=== PATIENT | female | born 1950 | race Caucasian/White ===

== ENCOUNTER 2016-10-18 13:34 | Inpatient (IN) | payer MEDICAID, MEDICARE ==
[2016-10-18] MEDS ORDERED: methylPREDNISolone Sod Succ/PF 125 MG/2 ML VIAL ONE (13:54)
[2016-10-18 14:04] LABS: #Basophils 0.1 thou/uL (0.0-0.2); #Eosinphils 0.4 thou/uL (0.0-0.7); #Lymphocytes 1.1 thou/uL (1.20-3.40); #Monocytes 0.8 thou/uL (0.11-0.59); %Monocytes 8.7 % (0.0-10.0); Hematocrit 41.2 % (36.0-47.0); Mean Platelet Volume 6.9 fL (7.4-10.4); White Blood Cell (WBC) Count 9.4 thou/uL (4.8-10.8)
[2016-10-18 14:13] LABS: ALT (SGPT) 15 U/L (0-55); AST (SGOT) 18 U/L (5-34); Alkaline Phosphatase 106 U/L (40-150); Anion Gap 14 mmol/L (10-20); BUN (Urea Nitrogen) 8 mg/dL (9.8-20.1); Bilirubin, Total 0.6 mg/dL (0.2-1.2); Calc. Creatinine Clearance 0 mL/min (70-130); Calcium 9.7 mg/dL (7.8-10.44); Carbon Dioxide 34 mmol/L (23-31); Chloride 90 mmol/L (98-107); Estimated GFR-MDRD Greater than 90; Globulin 3.1 g/dL (2.4-3.5); Protein, Total 7.6 g/dL (5.8-8.1)
[2016-10-18 14:17] LABS: Troponin I Less than 0.010 ng/mL (< 0.028)
[2016-10-18 14:32] LABS: Base Excess 8.8 mEq/L (-2 - +2)
--- NOTE | 2016-10-18 15:40 | ERRECORD ---
[facility] EMERGENCY RECORD HPI COPD (14:08 [facility]) CHIEF COMPLAINT: Patient presents for evaluation of dyspnea, Patient presents for evaluation of wheezing. HISTORIAN: History provided by patient, 66F presents to the ED with complaints of 4 days of persistent shortness of breath. States that she was recently hospitalized for COPD exacerbation and this feels similar. Has oxygen at home, but has decreased exercise tolerance even on home oxygen. Denies chest pain, fevers, chills. LOCATION: No localizing symptoms. QUALITY: Symptoms described as wheezing. TIME COURSE: Gradual onset of symptoms, Symptoms are constant. ASSOCIATED WITH: No associated chest pain, No associated cough, No associated fever, Associated with history of chronic obstructive pulmonary disease. EXACERBATED BY: Patient's condition exacerbated by exercise. RELIEVED BY: Patient's condition relieved by inhaler use, Patient's condition relieved by oxygen. RISK FACTORS: No pulmonary embolism risk factors, No coronary artery disease risk factors, No thoracic aortic dissection risk factors. ROS (14:10 [facility]) CONSTITUTIONAL: Negative constitutional review of systems, Historian denies chills, denies fever. EYES: Negative eye review of systems, Historian denies eye pain, denies vision changes. ENT: Negative ears, nose, throat review of systems, Historian denies rhinorrhea, denies sore throat, denies voice changes. CARDIOVASCULAR: Negative cardiovascular review of systems, Historian denies chest pain, denies palpitations. RESPIRATORY: Historian reports shortness of breath, reports wheezing. GI: Negative gastrointestinal review of systems, Historian denies abdominal pain, denies constipation, denies diarrhea, denies nausea, denies vomiting. GENITOURINARY FEMALE: Negative genitourinary review of systems, Historian denies dysuria, denies frequency. MUSCULOSKELETAL: Negative musculoskeletal review of systems, Historian denies back pain, denies fall, denies injury. SKIN: Negative skin review of systems, Historian denies rash, denies skin changes. NEUROLOGIC: Negative neurologic review of systems, Historian denies headache, denies mental status changes, denies paralysis, denies paresthesias, denies sensory changes. HEMO/LYMPHATIC: Normal hematologic/lymphatic system review, Historian denies abnormal blood clotting. ALLERGIC/IMMUNOLOGIC: Normal allergy/immunologic system review, Historian denies frequent infections. PAST MEDICAL HISTORY (13:40 [facility]) &a-1R&a+25V*p+0X*[id number]*c202B*c15G*c2P*p-0X&a-25V&a+1R Name: Massiel Garay : 1950 F66 MedRec: [id number] AcctNum: [id number] Prepared: FriOct 18, 2016 15:34 by Interface Page 1 of 4 pMD [facility] EMERGENCY RECORD MEDICAL HISTORY: Flu vaccine up to date, Tetanus immunization up to date, Pneumococcal vaccine up to date, Flu vaccine up to date, Tetanus immunization up to date, Pneumococcal vaccine up to date, Past medical history includes gastrointestinal disease, gastroesophageal reflux disease, Past medical history includes history of hypertension, Past medical history includes pulmonary disease, chronic obstructive pulmonary disease, Notes: gastric ulcer , hyperlipidemia, VERIFIED 10/18/16. FEMALE SURGICAL HISTORY: Surgical history of section, Surgical history of tonsillectomy, Surgical history of hysterectomy, Surgical history of orthopedic surgery, BACK X2. ABDOMINAL EXPLORITORY SURGERY. REVIEWED 10/18/16. PSYCHIATRIC HISTORY: Psychiatric history includes, anxiety, bipolar disorder, depression.VERIFIED 10/18/16. SOCIAL HISTORY: Patient denies alcohol use, Patient is a former drug user, abused marijuana, Patient is a former tobacco user, quit smoking last smoking. VERIFIED 10/18/16. FAMILY HISTORY: Family history includes hypertension, father. Family history includes hypertension, father. No known family hisotry. KNOWN ALLERGIES morphine (Unconfirmed): Reaction: Nausea No Known Drug Allergies CURRENT MEDICATIONS (13:37 [facility]) Protonix: TABLET, DELAYED RELEASE (ENTERIC COATED) : Strength - 40 mg : ORAL Patient Dose: 40 mg Oral once a day. CeleXA: TABLET : Strength - 10 mg : ORAL Patient Dose: 40 mg Oral once a day. hydrOXYzine pamoate: CAPSULE : Strength - 25 mg : ORAL Patient Dose: 25 mg Oral every 6 hours PRN. fluticasone: SPRAY, SUSPENSION : Strength - 50 mcg : NASAL Patient Dose: 1 spray(s) Nares Both once a day. lisinopril: TABLET : Strength - 10 mg : ORAL Patient Dose: 10 mg Oral once a day. Ventolin HFA: HFA AEROSOL WITH ADAPTER (GRAM) : Strength - 90 mcg : INHALATION Patient Dose: 2 puff(s) Inhaler every 4 hours prn. Singulair: TABLET : Strength - 10 mg : ORAL Patient Dose: 1 tab(s) Oral once a day (in the morning). Symbicort: HFA AEROSOL WITH ADAPTER (GRAM) : Strength - 160 mcg-4.5 mcg/actuation : INHALATION &a-1R&a+25V*p+0X*[id number]*c202B*c15G*c2P*p-0X&a-25V&a+1R Name: Massiel Garay : 1950 F66 MedRec: [id number] AcctNum: [id number] Prepared: FriOct 18, 2016 15:34 by Interface Page 2 of 4 pMD [facility] EMERGENCY RECORD Patient Dose: 1 puff(s) Inhaler 2 times a day. VITAL SIGNS VITAL SIGNS: Pulse: 96, Resp: 22, Pain: 0, O2 sat: 86 on Room Air, Time: 10/18/2016 13:35. (13:35 [facility]) BP: 160/74, Temp: 97.8 (Oral), O2 sat: 100 on 2L Oxygen, Time: 10/18/2016 13:40. (13:40 [facility]) BP: 149/70, Pulse: 91, Resp: 22, Pain: 0, O2 sat: 99 on 2L Oxygen, Time: 10/18/2016 14:30. (14:30 [facility]) PHYSICAL EXAM (14:10 [facility]) CONSTITUTIONAL: Patient afebrile, Pulse normal, Blood pressure normal, Respiratory rate normal, Abnormal Pulse Oximetry, hypoxic on room air, 100% on 2L home o2, Patient appears non toxic, Patient appears pain free, Patient alert and oriented to person, place and time. HEAD: Head exam normal, Head exam included findings of head atraumatic, normocephalic. EYES: Eye exam normal, Eye exam included findings of eyelids normal to inspection, Pupils equally round and reactive to light, Extraocular muscles intact, no nystagmus. ENT: ENT exam normal, Ear exam normal, external ear normal, tympanic membranes normal, no bleeding, Pharynx exam normal, Uvula exam normal, Tonsil exam normal, Mouth exam normal, mucous membranes moist, teeth normal. NECK: Neck exam normal, Neck exam included findings of normal range of motion, Trachea midline, no meningeal signs, no cervical adenopathy, no tenderness. RESPIRATORY CHEST: Respiratory exam included findings of, mild respiratory distress, Wheezing present, diffusely, Breath sounds diminished. CARDIOVASCULAR: Cardiovascular assessment normal, Cardiovascular exam included findings of heart rate regular rate and rhythm, Heart sounds normal. ABDOMEN FEMALE: Abdominal exam included findings of abdomen nontender, Bowel sounds normal, no distension, no mass, no pulsatile masses, no peritoneal signs, no rigidity, no guarding, no rebound, Rovsing's sign absent. BACK: Back exam normal, Back exam included findings of normal inspection, range of motion normal, no tenderness. UPPER EXTREMITY: Upper extremity exam normal, Upper extremity exam included findings of inspection normal, Range of motion normal, Motor strength normal, Sensation intact, Radial pulse normal. LOWER EXTREMITY: Lower extremity exam normal, Lower extremity exam included findings of inspection normal, Range of motion normal, Motor strength normal, Sensation intact, Posterior tibial pulse normal, Pedal pulse normal. NEURO: Neuro exam normal, Neuro exam findings include patient oriented to person, place and time, Speech normal, Gait normal, &a-1R&a+25V*p+0X*d3834M*c202B*c15G*c2P*p-0X&a-25V&a+1R Name: Massiel Garay : 1950 F66 MedRec: [id number] AcctNum: [id number] Prepared: FriOct 18, 2016 15:34 by Interface Page 3 of 4 pMD [facility] EMERGENCY RECORD Cranial nerves intact, no focal motor deficits, no focal sensory deficits. SKIN: Skin exam normal, Skin exam included findings of skin warm, dry, and normal in color, no rash. PSYCHIATRIC: Psychiatric exam normal, Normal affect. EKG INTERPRETATION (15:27 [facility]) 12 LEAD EKG INTERPRETATION: Interpretation: normal EKG. RADIOLOGYINTERPRETATION (14:12 [facility]) CHEST: Chest films negative. MEDICATION ADMINISTRATION SUMMARY Drug Name: methylPREDNISolone sodium succ injection, Dose Ordered: 125 mg, Route: IV Push, Status: Given, Time: 14:02 10/18/2016, Drug Name: DuoNeb, Dose Ordered: 3 mL, Route: Nebulize, Status: Given, Time: 13:58 10/18/2016, Detailed record available in Medication Service section. [facility] RE-EVALUATION: Routine re-evaluation, after administration of bronchodilator nebulizer treatments, The patient's condition has improved. TEXT: Patient presented with findings consistent with COPD exacerbation. Workup has been reassuring except for PCO2 of 65. Patient ambulated with O2 on and desaturated to 91%, and became tachycardic. I believe patient would benefit from admission for observation overnight and continued care and management due to her advance disease and current condition. PATIENT PLAN: The patient will be admitted to the hospital, Initial physician orders were written for patient as discussed with admitting physician, The patient will be admitted to a medical floor. DATA REVIEWED: Lab data reviewed, Xray data reviewed, Reviewed EKG. PROBLEM LIST No recorded problems PRESCRIPTION No recorded prescriptions [place]: MATTEO=TACO Elkins, Magalys [facility]=MD Bea, Codey &a-1R&a+25V*p+0X*d7713Y*c202B*c15G*c2P*p-0X&a-25V&a+1R Name: Massiel Garay : 1950 F66 MedRec: [id number] AcctNum: [id number] Prepared: FriOct 18, 2016 15:34 by Interface Page 4 of 4 pMD MTDD
--- NOTE | 2016-10-18 15:40 | ERRECORD ---
[facility] EMERGENCY RECORD HPI COPD (14:08 [facility]) CHIEF COMPLAINT: Patient presents for evaluation of dyspnea, Patient presents for evaluation of wheezing. HISTORIAN: History provided by patient, 66F presents to the ED with complaints of 4 days of persistent shortness of breath. States that she was recently hospitalized for COPD exacerbation and this feels similar. Has oxygen at home, but has decreased exercise tolerance even on home oxygen. Denies chest pain, fevers, chills. LOCATION: No localizing symptoms. QUALITY: Symptoms described as wheezing. TIME COURSE: Gradual onset of symptoms, Symptoms are constant. ASSOCIATED WITH: No associated chest pain, No associated cough, No associated fever, Associated with history of chronic obstructive pulmonary disease. EXACERBATED BY: Patient's condition exacerbated by exercise. RELIEVED BY: Patient's condition relieved by inhaler use, Patient's condition relieved by oxygen. RISK FACTORS: No pulmonary embolism risk factors, No coronary artery disease risk factors, No thoracic aortic dissection risk factors. ROS (14:10 [facility]) CONSTITUTIONAL: Negative constitutional review of systems, Historian denies chills, denies fever. EYES: Negative eye review of systems, Historian denies eye pain, denies vision changes. ENT: Negative ears, nose, throat review of systems, Historian denies rhinorrhea, denies sore throat, denies voice changes. CARDIOVASCULAR: Negative cardiovascular review of systems, Historian denies chest pain, denies palpitations. RESPIRATORY: Historian reports shortness of breath, reports wheezing. GI: Negative gastrointestinal review of systems, Historian denies abdominal pain, denies constipation, denies diarrhea, denies nausea, denies vomiting. GENITOURINARY FEMALE: Negative genitourinary review of systems, Historian denies dysuria, denies frequency. MUSCULOSKELETAL: Negative musculoskeletal review of systems, Historian denies back pain, denies fall, denies injury. SKIN: Negative skin review of systems, Historian denies rash, denies skin changes. NEUROLOGIC: Negative neurologic review of systems, Historian denies headache, denies mental status changes, denies paralysis, denies paresthesias, denies sensory changes. HEMO/LYMPHATIC: Normal hematologic/lymphatic system review, Historian denies abnormal blood clotting. ALLERGIC/IMMUNOLOGIC: Normal allergy/immunologic system review, Historian denies frequent infections. PAST MEDICAL HISTORY (13:40 [facility]) &a-1R&a+25V*p+0X*a5829U*c202B*c15G*c2P*p-0X&a-25V&a+1R Name: Massiel Garay : 1950 F66 MedRec: [id number] AcctNum: [id number] Prepared: FriOct 18, 2016 16:19 by Interface Page 1 of 5 pMD [facility] EMERGENCY RECORD MEDICAL HISTORY: Flu vaccine up to date, Tetanus immunization up to date, Pneumococcal vaccine up to date, Flu vaccine up to date, Tetanus immunization up to date, Pneumococcal vaccine up to date, Past medical history includes gastrointestinal disease, gastroesophageal reflux disease, Past medical history includes history of hypertension, Past medical history includes pulmonary disease, chronic obstructive pulmonary disease, Notes: gastric ulcer , hyperlipidemia, VERIFIED 10/18/16. FEMALE SURGICAL HISTORY: Surgical history of section, Surgical history of tonsillectomy, Surgical history of hysterectomy, Surgical history of orthopedic surgery, BACK X2. ABDOMINAL EXPLORITORY SURGERY. REVIEWED 10/18/16. PSYCHIATRIC HISTORY: Psychiatric history includes, anxiety, bipolar disorder, depression.VERIFIED 10/18/16. SOCIAL HISTORY: Patient denies alcohol use, Patient is a former drug user, abused marijuana, Patient is a former tobacco user, quit smoking last smoking. VERIFIED 10/18/16. FAMILY HISTORY: Family history includes hypertension, father. Family history includes hypertension, father. No known family hisotry. KNOWN ALLERGIES morphine (Unconfirmed): Reaction: Nausea No Known Drug Allergies CURRENT MEDICATIONS (13:37 [facility]) Protonix: TABLET, DELAYED RELEASE (ENTERIC COATED) : Strength - 40 mg : ORAL Patient Dose: 40 mg Oral once a day. CeleXA: TABLET : Strength - 10 mg : ORAL Patient Dose: 40 mg Oral once a day. hydrOXYzine pamoate: CAPSULE : Strength - 25 mg : ORAL Patient Dose: 25 mg Oral every 6 hours PRN. fluticasone: SPRAY, SUSPENSION : Strength - 50 mcg : NASAL Patient Dose: 1 spray(s) Nares Both once a day. lisinopril: TABLET : Strength - 10 mg : ORAL Patient Dose: 10 mg Oral once a day. Ventolin HFA: HFA AEROSOL WITH ADAPTER (GRAM) : Strength - 90 mcg : INHALATION Patient Dose: 2 puff(s) Inhaler every 4 hours prn. Singulair: TABLET : Strength - 10 mg : ORAL Patient Dose: 1 tab(s) Oral once a day (in the morning). Symbicort: HFA AEROSOL WITH ADAPTER (GRAM) : Strength - 160 mcg-4.5 mcg/actuation : INHALATION &a-1R&a+25V*p+0X*[id number]*c202B*c15G*c2P*p-0X&a-25V&a+1R Name: Massiel Garay : 1950 F66 MedRec: [id number] AcctNum: [id number] Prepared: FriOct 18, 2016 16:19 by Interface Page 2 of 5 pMD [facility] EMERGENCY RECORD Patient Dose: 1 puff(s) Inhaler 2 times a day. VITAL SIGNS VITAL SIGNS: Pulse: 96, Resp: 22, Pain: 0, O2 sat: 86 on Room Air, Time: 10/18/2016 13:35. (13:35 [facility]) BP: 160/74, Temp: 97.8 (Oral), O2 sat: 100 on 2L Oxygen, Time: 10/18/2016 13:40. (13:40 [facility]) BP: 149/70, Pulse: 91, Resp: 22, Pain: 0, O2 sat: 99 on 2L Oxygen, Time: 10/18/2016 14:30. (14:30 [facility]) BP: 136/73, Pulse: 91, Resp: 22, Temp: 98.1 (Oral), Pain: 0, O2 sat: 99 on 2L Oxygen, Time: 10/18/2016 15:38. (15:38 [facility]) PHYSICAL EXAM (14:10 [facility]) CONSTITUTIONAL: Patient afebrile, Pulse normal, Blood pressure normal, Respiratory rate normal, Abnormal Pulse Oximetry, hypoxic on room air, 100% on 2L home o2, Patient appears non toxic, Patient appears pain free, Patient alert and oriented to person, place and time. HEAD: Head exam normal, Head exam included findings of head atraumatic, normocephalic. EYES: Eye exam normal, Eye exam included findings of eyelids normal to inspection, Pupils equally round and reactive to light, Extraocular muscles intact, no nystagmus. ENT: ENT exam normal, Ear exam normal, external ear normal, tympanic membranes normal, no bleeding, Pharynx exam normal, Uvula exam normal, Tonsil exam normal, Mouth exam normal, mucous membranes moist, teeth normal. NECK: Neck exam normal, Neck exam included findings of normal range of motion, Trachea midline, no meningeal signs, no cervical adenopathy, no tenderness. RESPIRATORY CHEST: Respiratory exam included findings of, mild respiratory distress, Wheezing present, diffusely, Breath sounds diminished. CARDIOVASCULAR: Cardiovascular assessment normal, Cardiovascular exam included findings of heart rate regular rate and rhythm, Heart sounds normal. ABDOMEN FEMALE: Abdominal exam included findings of abdomen nontender, Bowel sounds normal, no distension, no mass, no pulsatile masses, no peritoneal signs, no rigidity, no guarding, no rebound, Rovsing's sign absent. BACK: Back exam normal, Back exam included findings of normal inspection, range of motion normal, no tenderness. UPPER EXTREMITY: Upper extremity exam normal, Upper extremity exam included findings of inspection normal, Range of motion normal, Motor strength normal, Sensation intact, Radial pulse normal. LOWER EXTREMITY: Lower extremity exam normal, Lower extremity exam included findings of inspection normal, Range of motion normal, Motor strength normal, Sensation intact, Posterior tibial pulse normal, Pedal pulse normal. &a-1R&a+25V*p+0X*k3693X*c202B*c15G*c2P*p-0X&a-25V&a+1R Name: Massiel Garay : 1950 F66 MedRec: [id number] AcctNum: [id number] Prepared: FriOct 18, 2016 16:19 by Interface Page 3 of 5 D [facility] EMERGENCY RECORD NEURO: Neuro exam normal, Neuro exam findings include patient oriented to person, place and time, Speech normal, Gait normal, Cranial nerves intact, no focal motor deficits, no focal sensory deficits. SKIN: Skin exam normal, Skin exam included findings of skin warm, dry, and normal in color, no rash. PSYCHIATRIC: Psychiatric exam normal, Normal affect. EKG INTERPRETATION (15:27 [facility]) 12 LEAD EKG INTERPRETATION: Interpretation: normal EKG. RADIOLOGYINTERPRETATION (14:12 [facility]) CHEST: Chest films negative. MEDICATION ADMINISTRATION SUMMARY Drug Name: methylPREDNISolone sodium succ injection, Dose Ordered: 125 mg, Route: IV Push, Status: Given, Time: 14:02 10/18/2016, Drug Name: DuoNeb, Dose Ordered: 3 mL, Route: Nebulize, Status: Given, Time: 13:58 10/18/2016, Detailed record available in Medication Service section. DOCTOR NOTES (15:28 [facility]) RE-EVALUATION: Routine re-evaluation, after administration of bronchodilator nebulizer treatments, The patient's condition has improved. TEXT: Patient presented with findings consistent with COPD exacerbation. Workup has been reassuring except for PCO2 of 65. Patient ambulated with O2 on and desaturated to 91%, and became tachycardic. I believe patient would benefit from admission for observation overnight and continued care and management due to her advance disease and current condition. PATIENT PLAN: The patient will be admitted to the hospital, Initial physician orders were written for patient as discussed with admitting physician, The patient will be admitted to a medical floor. DATA REVIEWED: Lab data reviewed, Xray data reviewed, Reviewed EKG. PROBLEM LIST No recorded problems DIAGNOSIS (16:11 [facility]) FINAL: PRIMARY: COPD exacerbation. PRESCRIPTION No recorded prescriptions DISPOSITION PATIENT: Disposition Type: Admit, Disposition: [facility]. (16:11 [facility]) &a-1R&a+25V*p+0X*f1909O*c202B*c15G*c2P*p-0X&a-25V&a+1R Name: Massiel Garay : 1950 F66 MedRec: [id number] AcctNum: [id number] Prepared: FriOct 18, 2016 16:19 by Interface Page 4 of 5 pMD [facility] EMERGENCY RECORD Patient left the department. (16:11 [facility]) [place]: AHOO=JAIME Kumar, December [facility]=TACO Elkins, Magalys [facility]=MD Bea, Codey &a-1R&a+25V*p+0X*p0576L*c202B*c15G*c2P*p-0X&a-25V&a+1R Name: Massiel Garay : 1950 F66 MedRec: [id number] AcctNum: [id number] Prepared: FriOct 18, 2016 16:19 by Interface Page 5 of 5 pMD MTDD
--- NOTE | 2016-10-18 15:44 | PICIS ---
[facility] EMERGENCY RECORD TRIAGE (FriOct 18, 2016 13:37 BGAR) TRIAGE NOTES: pt c/o sob x 4 days; sent over by pcp. (FriOct 18, 2016 13:37 BGAR) PATIENT: NAME: Massiel Garay, AGE: 66, GENDER: female, : Fri1950, TIME OF GREET: FriOct 18, 2016 13:35, PREFERRED LANGUAGE: Slovenian, ETHNICITY: Not or , ECODE BILLING MAP: [facility], SSN: [id number], Zip Code: [address], KG WEIGHT: 44.45 (est.), PHONE: , , , PERSON ID: [id number], PAYMENT: [employer], PCP: kadi moralez. (FriOct 18, 2016 13:37 BGAR) COMPLAINT: Shortness of Breath. (FriOct 18, 2016 13:37 BGAR) ADMISSION: URGENCY: 3 Urgent, ADMISSION SOURCE: Doctor's Office, TRANSPORT: Walk-in, BED: ER -02. (FriOct 18, 2016 13:37 BGAR) ASSESSMENT: Assessment: PT TO ER BED 2. PT WITH SOB, HX OF COPB, Symptoms began 4 DAYS AGO. (13:40 BGAR) PAIN: No complaint of pain. (13:40 BGAR) SIRS SCORING: Heart Rate 55-109 (0), Temp range 96.8-101.1 (0), respiratory rate 12-24 (0), Mental Status altered: no (0), Infection or Suspected Infection: No. (13:40 BGAR) SIRS NOTIFICATION: Yes, Infection or Suspected Infection. (13:40 BGAR) TRIAGE SCREENING: Patient denies suicidal ideation, Patient denies presence of domestic violence. (13:40 BGAR) LMP: LMP: Hysterectomy. (13:40 BGAR) PROVIDERS: TRIAGE NURSE: Magalys Elkins RN. (FriOct 18, 2016 13:37 BGAR) VITAL SIGNS: Pulse 96, Resp 22, Pain 0, O2 Sat 86, on Room Air, Time 10/18/2016 13:35. (13:35 BGAR) PREVIOUS VISIT ALLERGIES: No Known Drug Allergies. (FriOct 18, 2016 13:37 BGAR) No Known Drug Allergies. (13:40 BGAR) KNOWN ALLERGIES morphine (Unconfirmed): Reaction: Nausea No Known Drug Allergies CURRENT MEDICATIONS (13:37 BGAR) Protonix: TABLET, DELAYED RELEASE (ENTERIC COATED) : Strength - 40 mg : ORAL Patient Dose: 40 mg Oral once a day. CeleXA: TABLET : Strength - 10 mg : ORAL Patient Dose: 40 mg Oral once a day. hydrOXYzine pamoate: CAPSULE : Strength - 25 mg : ORAL Patient Dose: 25 mg Oral every 6 hours PRN. fluticasone: SPRAY, SUSPENSION : Strength - 50 mcg : NASAL Patient Dose: 1 spray(s) Nares Both once a day. &a-1R&a+25V*p+0X*m4586C*c202B*c15G*c2P*p-0X&a-25V&a+1R Name: Massiel Garay : 1950 F66 MedRec: [id number] AcctNum: [id number] Prepared: FriOct 18, 2016 16:19 by Interface Page 1 of 10 pMD [facility] EMERGENCY RECORD lisinopril: TABLET : Strength - 10 mg : ORAL Patient Dose: 10 mg Oral once a day. Ventolin HFA: HFA AEROSOL WITH ADAPTER (GRAM) : Strength - 90 mcg : INHALATION Patient Dose: 2 puff(s) Inhaler every 4 hours prn. Singulair: TABLET : Strength - 10 mg : ORAL Patient Dose: 1 tab(s) Oral once a day (in the morning). Symbicort: HFA AEROSOL WITH ADAPTER (GRAM) : Strength - 160 mcg-4.5 mcg/actuation : INHALATION Patient Dose: 1 puff(s) Inhaler 2 times a day. VITAL SIGNS VITAL SIGNS: Pulse: 96, Resp: 22, Pain: 0, O2 sat: 86 on Room Air, Time: 10/18/2016 13:35. (13:35 BGAR) BP: 160/74, Temp: 97.8 (Oral), O2 sat: 100 on 2L Oxygen, Time: 10/18/2016 13:40. (13:40 BGAR) BP: 149/70, Pulse: 91, Resp: 22, Pain: 0, O2 sat: 99 on 2L Oxygen, Time: 10/18/2016 14:30. (14:30 BGAR) BP: 136/73, Pulse: 91, Resp: 22, Temp: 98.1 (Oral), Pain: 0, O2 sat: 99 on 2L Oxygen, Time: 10/18/2016 15:38. (15:38 AHOO) NURSING ASSESSMENT: FALL RISK (15:52 AHOO) FALL RISK: Fall risk assessment findings include: History of falls (5), Sensory deficits (1), Total score 6. HENDRICH II FALL RISK: Total score 0. NURSING ASSESSMENT: RESPIRATORY /CHEST (13:40 BGAR) CONSTITUTIONAL: Patient arrives, via hospital wheelchair, Unsteady gait, Assistance to cart, History obtained from patient, Patient appears, uncomfortable, Patient cooperative, Patient alert, Oriented to person, place and time, Skin warm, Skin dry, Skin normal in color, Mucous membranes pink, Mucous membranes moist. RESPIRATORY/CHEST: Lungs auscultated, Breath sounds diminished, to bilateral upper lobes, to bilateral lower lobes, Breath sounds with wheezing, scattered, to bilateral upper lobes, Respiratory assessment findings include respiratory effort, tachypneic, Respirations regular, Converses, in short phrases, Neck and chest exam findings include trachea midline, Chest expansion equal, Chest movement symmetrical, Signs of distress, in mild distress, Associated with cough, productive of, brown sputum, Associated with fever. ENT: Ear assessment findings include ear normal to inspection, no drainage from ears, Nasal assessment findings include nose normal to &a-1R&a+25V*p+0X*y8229V*c202B*c15G*c2P*p-0X&a-25V&a+1R Name: Massiel Garay : 1950 F66 MedRec: [id number] AcctNum: [id number] Prepared: FriOct 18, 2016 16:19 by Interface Page 2 of 10 pMD [facility] EMERGENCY RECORD inspection, Sinuses normal, Nasal mucosa normal, no bleeding, Mouth and throat assessment findings include mouth inspection normal, Uvula normal, Tonsils normal, Mucous membranes pink, and moist, Able to swallow, Patient, able to speak short phrases. SAFETY: Side rails up, Cart/Stretcher in lowest position, Call light within reach, Hospital ID band on. NURSING ASSESSMENT: SKIN (15:55 AHOO) CONSTITUTIONAL: Complex assessment performed, Patient arrives ambulatory, Gait steady, History obtained from patient, Patient appears comfortable, Patient cooperative, Patient alert, Oriented to person, place and time, Skin warm, Skin dry, Skin normal in color, Mucous membranes pink, Mucous membranes moist, Patient is well-groomed, Patient complains of SOB. PAIN: PT DENIES PAIN. JOSTIN SCALE: (4) Sensory perception has no impairment, (4) Skin is rarely moist, (4) Patient walks frequently, (4) No mobility limitations, (3) Adequate nutrition, (3) Patient has no apparent problem moving, Jostin Risk Total: 22. NURSING PROCEDURE: ADMISSION ADMISSION: Patient admitted to a medical-surgical unit, room number 114, Notes: CALLED REPORT TO LANCE RN. (15:58 AHOO) NOTES: Notes: WHEELED PT TO ROOM 114 VIA WHEELCHAIR AND TURNED OVER PT CARE TO LANCE RN. (16:05 AHOO) NURSING PROCEDURE: BEDSIDE RADIOLOGY (13:56 BGAR) PATIENT IDENTIFIER: Patient actively involved in identification process, Patient's identity verified by patient stating name, Patient's identity verified by patient stating date, Patient's identity verified by hospital ID bracelet. BEDSIDE RADIOLOGY: Bedside radiology performed by Yamile Singh, Portable chest x-ray performed. NURSING PROCEDURE: BEDSIDE SIRS TESTING (15:51 AHOO) SCORES: Heart Rate 55-109 (0), Temp range 96.8-101.1 (0), respiratory rate 12-24 (0), Latest WBC 3-14.9 (0), Mental Status altered: no (0), Infection or Suspected Infection: No. NURSING PROCEDURE: COMMUNICATIONS (14:36 AHOO) COMMUNICATIONS: Critical lab value, received at [facility], received from [facility], Critical lab result: 65, given to DR MATOS, results read back and verified, Notes: PVCO2 IS 65. NURSING PROCEDURE: EKG CHART (13:51 AHOO) PATIENT IDENTIFIER: Patient actively involved in identification process, Patient's identity verified by patient stating name, Patient's identity verified by patient stating date, Patient's identity verified by hospital ID bracelet. EKG: EKG indicated for SOB, 12 lead EKG performed on the left &a-1R&a+25V*p+0X*l6442F*c202B*c15G*c2P*p-0X&a-25V&a+1R Name: Massiel Garay : 1950 F66 MedRec: [id number] AcctNum: [id number] Prepared: FriOct 18, 2016 16:19 by Interface Page 3 of 10 pMD [facility] EMERGENCY RECORD chest, done by FABIEN OVALLE LVN, first EKG. FOLLOW-UP: After procedure, EKG for interpretation given to Dr. DR MATOS. NURSING PROCEDURE: IV PATIENT IDENITIFIER: Patient actively involved in identification process, Patient's identity verified by patient stating name, Patient's identity verified by patient stating date, Patient's identity verified by hospital ID bracelet. (13:40 AHOO) IV SITE 1: IV therapy indicated for medication administration, IV established, to the right antecubital, using a 20 gauge catheter, in one attempt, Saline lock established, Flushed with normal saline (mls): 10ML, Labs drawn at time of placement, labeled in the presence of the patient and sent to lab. (13:40 AHOO) FOLLOW-UP SITE 1: After procedure, sterile transparent dressing applied, After procedure, no drainage at IV site, After procedure, no swelling at IV site, After procedure, no redness at IV site, Notes: SL PATENT WITHOUT ANY REDNESS, EDEMA OR BRUISING NOTED. (16:08 AHOO) NURSING PROCEDURE: NURSE NOTES (14:45 AHOO) NURSES NOTES: Notes: WALKED THE PT DOWN THE [address] WAY WITH O2 AT 2L PER NC AND PULSE OXIMETER ON HER FINGER, PT AT APPROX 25 FEET STATED "I CAN'T BREATH" HER OXYGENTATION WAS AT 93% AT THIS TIME AND HER HR WAS 123. WE TURNED AROUND TO COME BACK TO THE ER AT APPROX 50 PT OXYGENATION WENT DOWN TO 91% ON 2L NC AND HER HR WAS 137. WHEN I BROUGHT PT BACK TO HER ER ROOM IT TOOK APPROX 2-3MIN FOR HER TO RECOVER WITH HER OXYGENATION GOING UP TO 98% AND HR DOWN TO 115. NURSING PROCEDURE: RESPIRATORY INTERVENTIONS PATIENT IDENTIFIER: Patient actively involved in identification process, Patient's identity verified by patient stating name, Patient's identity verified by patient stating date, Patient's identity verified by hospital ID bracelet. (13:58 BGAR) RESPIRATORY INTERVENTIONS: Respiratory interventions indicated for wheezing, Pre-intervention breath sounds diminished, to bilateral upper lobes, to bilateral lower lobes, Pre-intervention breath sounds with wheezing, scattered, to bilateral upper lobes, Patient given ALBUTEROL with ATROVENT, Single dose nebulizer. (13:58 BGAR) FOLLOW-UP: After procedure, oxygen saturation 99%, After procedure, breath sounds diminished, to bilateral upper lobes, to bilateral lower lobes, After procedure, breath sounds with wheezing, scattered, to bilateral upper lobes. (14:08 BGAR) SAFETY: Side rails up, Cart/Stretcher in lowest position, Call light within reach, Hospital ID band on. (13:58 BGAR) ORDER DETAILS &a-1R&a+25V*p+0X*m9598W*c202B*c15G*c2P*p-0X&a-25V&a+1R Name: Massiel Garay : 1950 F66 MedRec: [id number] AcctNum: [id number] Prepared: FriOct 18, 2016 16:19 by Interface Page 4 of 10 pMD [facility] EMERGENCY RECORD Order Name: Basic Metabolic Panel, Status: Active, Time: 13:47 10/18/2016, User: BRITTNEY, - Ordered for: MD Matos Jason, - Entered by: MD Matos Jason - FriOct 18, 2016 13:47, - Quantity: 1, Order Name: Cardiac Profile w/CKMB & Troponin - I, Status: Active, Time: 13:47 10/18/2016, User: BRITTNEY, - Ordered for: MD Matos Jason, - Entered by: MD Matos Jason - FriOct 18, 2016 13:47, - Quantity: 1, Order Name: CBC with Differential, Status: Active, Time: 13:47 10/18/2016, User: BRITTNEY, - Ordered for: MD Matos Jason, - Entered by: MD Matos Jason - FriOct 18, 2016 13:47, - Quantity: 1, Order Name: Comprehensive Metabolic Panel, Status: Active, Time: 13:47 10/18/2016, User: BRITTNEY, - Ordered for: MD Matos Jason, - Entered by: MD Matos Jason - Caitlin Oct 18, 2016 13:47, - Quantity: 1, Order Name: Culture, Blood, Status: Active, Time: 15:10 10/18/2016, User: BRITTNEY, - Ordered for: MD Matos Jason, - Entered by: MD Matos Jason - FriOct 18, 2016 15:10, - Quantity: 1, Order Name: EKG 12 Lead in Emergency Room, Status: Active, Time: 13:47 10/18/2016, User: BRITTNEY, - Ordered for: MD Matos Jason, - Entered by: MD Matos Jason - Fri Oct 18, 2016 13:47, - Quantity: 1, Order Name: SALINE LOCK, Status: Done, Time: 13:52 10/18/2016, User: MATTEO, - Ordered for: MD Matos Jason, - Entered by: MD Matos Jason - Fri Oct 18, 2016 13:47, - Quantity: 1, Order Name: VBG (For BUR,MAD, and LOREN), Status: Active, Time: 14:19 10/18/2016, User: BRITTNEY, - Ordered for: MD Matos Jason, - Entered by: MD Matos Jason - Caitlin Oct 18, 2016 14:19, - Quantity: 1, Order Name: XR Chest 1 View Portable, Status: Active, Time: 13:47 10/18/2016, User: BRITTNEY, - Ordered for: MD Matos Jason, - Entered by: MD Matos Jason - Fri Oct 18, 2016 13:47, - Quantity: 1. MEDICATION ADMINISTRATION SUMMARY Drug Name: methylPREDNISolone sodium succ injection, Dose Ordered: 125 mg, Route: IV Push, Status: Given, Time: 14:02 10/18/2016, &a-1R&a+25V*p+0X*e0102Q*c202B*c15G*c2P*p-0X&a-25V&a+1R Name: Massiel Garay : 1950 F66 MedRec: [id number] AcctNum: [id number] Prepared: FriOct 18, 2016 16:19 by Interface Page 5 of 10 pMD [facility] EMERGENCY RECORD Drug Name: DuoNeb, Dose Ordered: 3 mL, Route: Nebulize, Status: Given, Time: 13:58 10/18/2016, Detailed record available in Medication Service section. MEDICATION SERVICE DuoNeb: Order: DuoNeb (ipratropium bromide/albuterol sulfate) - Dose: 3 mL : Nebulize Ordered by: Codey Matos MD Entered by: Codey Matos MD FriOct 18, 2016 13:49 , Acknowledged by: Magalys Elkins RN FriOct 18, 2016 13:54 Documented as given by: Magalys Elkins RN FriOct 18, 2016 13:58 Patient, Medication, Dose, Route and Time verified prior to administration. Site: Medication administered via Hand-held nebulizer, With oxygen. : Follow Up : Response assessment performed, No signs or symptoms of allergic reaction noted, Decreased respiratory rate, Decreased respiratory effort. (16:00 AHOO) methylPREDNISolone sodium succ injection: Order: methylPREDNISolone sodium succ injection (methylprednisolone sod succ) - Dose: 125 mg : IV Push Ordered by: Codey Matos MD Entered by: Codey Matos MD FriOct 18, 2016 13:48 , Acknowledged by: Magalys Elkins RN FriOct 18, 2016 13:54 Documented as given by: Magalys Elkins RN FriOct 18, 2016 14:02 Patient, Medication, Dose, Route and Time verified prior to administration. IV SITE #1 IVP, initial medication, Slowly, Catheter placement confirmed via flush prior to administration, IV site without signs or symptoms of infiltration during medication administration, No swelling during administration, No drainage during administration, IV flushed after administration, Correct patient, time, route, dose and medication confirmed prior to administration, Patient advised of actions and side-effects prior to administration, Allergies confirmed and medications reviewed prior to administration. : Follow Up : Response assessment performed, No signs or symptoms of allergic reaction noted, Decreased respiratory rate, Decreased respiratory effort, _IV SITE #1:_. (16:00 AHOO) HPI COPD (14:08 [facility]) CHIEF COMPLAINT: Patient presents for evaluation of dyspnea, Patient presents for evaluation of wheezing. HISTORIAN: History provided by patient, 66F presents to the ED with complaints of 4 days of persistent shortness of breath. States that she was recently hospitalized for COPD exacerbation and this feels similar. Has oxygen at home, but has decreased exercise tolerance even on home oxygen. Denies chest pain, fevers, chills. LOCATION: No localizing symptoms. QUALITY: Symptoms described as wheezing. TIME COURSE: Gradual onset of symptoms, &a-1R&a+25V*p+0X*i3703I*c202B*c15G*c2P*p-0X&a-25V&a+1R Name: Massiel Garay : 1950 F66 MedRec: [id number] AcctNum: [id number] Prepared: FriOct 18, 2016 16:19 by Interface Page 6 of 10 pMD [facility] EMERGENCY RECORD Symptoms are constant. ASSOCIATED WITH: No associated chest pain, No associated cough, No associated fever, Associated with history of chronic obstructive pulmonary disease. EXACERBATED BY: Patient's condition exacerbated by exercise. RELIEVED BY: Patient's condition relieved by inhaler use, Patient's condition relieved by oxygen. RISK FACTORS: No pulmonary embolism risk factors, No coronary artery disease risk factors, No thoracic aortic dissection risk factors. ROS (14:10 [facility]) CONSTITUTIONAL: Negative constitutional review of systems, Historian denies chills, denies fever. EYES: Negative eye review of systems, Historian denies eye pain, denies vision changes. ENT: Negative ears, nose, throat review of systems, Historian denies rhinorrhea, denies sore throat, denies voice changes. CARDIOVASCULAR: Negative cardiovascular review of systems, Historian denies chest pain, denies palpitations. RESPIRATORY: Historian reports shortness of breath, reports wheezing. GI: Negative gastrointestinal review of systems, Historian denies abdominal pain, denies constipation, denies diarrhea, denies nausea, denies vomiting. GENITOURINARY FEMALE: Negative genitourinary review of systems, Historian denies dysuria, denies frequency. MUSCULOSKELETAL: Negative musculoskeletal review of systems, Historian denies back pain, denies fall, denies injury. SKIN: Negative skin review of systems, Historian denies rash, denies skin changes. NEUROLOGIC: Negative neurologic review of systems, Historian denies headache, denies mental status changes, denies paralysis, denies paresthesias, denies sensory changes. HEMO/LYMPHATIC: Normal hematologic/lymphatic system review, Historian denies abnormal blood clotting. ALLERGIC/IMMUNOLOGIC: Normal allergy/immunologic system review, Historian denies frequent infections. PAST MEDICAL HISTORY (13:40 BGAR) MEDICAL HISTORY: Flu vaccine up to date, Tetanus immunization up to date, Pneumococcal vaccine up to date, Flu vaccine up to date, Tetanus immunization up to date, Pneumococcal vaccine up to date, Past medical history includes gastrointestinal disease, gastroesophageal reflux disease, Past medical history includes history of hypertension, Past medical history includes pulmonary disease, chronic obstructive pulmonary disease, Notes: gastric ulcer , hyperlipidemia, VERIFIED 10/18/16. FEMALE SURGICAL HISTORY: Surgical history of section, Surgical history of tonsillectomy, Surgical history of hysterectomy, Surgical history of orthopedic surgery, BACK X2. &a-1R&a+25V*p+0X*m9261G*c202B*c15G*c2P*p-0X&a-25V&a+1R Name: Massiel Garay : 1950 F66 MedRec: [id number] AcctNum: [id number] Prepared: FriOct 18, 2016 16:19 by Interface Page 7 of 10 pMD [facility] EMERGENCY RECORD ABDOMINAL EXPLORITORY SURGERY. REVIEWED 10/18/16. PSYCHIATRIC HISTORY: Psychiatric history includes, anxiety, bipolar disorder, depression.VERIFIED 10/18/16. SOCIAL HISTORY: Patient denies alcohol use, Patient is a former drug user, abused marijuana, Patient is a former tobacco user, quit smoking last smoking. VERIFIED 10/18/16. FAMILY HISTORY: Family history includes hypertension, father. Family history includes hypertension, father. No known family hisotry. PHYSICAL EXAM (14:10 [facility]) CONSTITUTIONAL: Patient afebrile, Pulse normal, Blood pressure normal, Respiratory rate normal, Abnormal Pulse Oximetry, hypoxic on room air, 100% on 2L home o2, Patient appears non toxic, Patient appears pain free, Patient alert and oriented to person, place and time. HEAD: Head exam normal, Head exam included findings of head atraumatic, normocephalic. EYES: Eye exam normal, Eye exam included findings of eyelids normal to inspection, Pupils equally round and reactive to light, Extraocular muscles intact, no nystagmus. ENT: ENT exam normal, Ear exam normal, external ear normal, tympanic membranes normal, no bleeding, Pharynx exam normal, Uvula exam normal, Tonsil exam normal, Mouth exam normal, mucous membranes moist, teeth normal. NECK: Neck exam normal, Neck exam included findings of normal range of motion, Trachea midline, no meningeal signs, no cervical adenopathy, no tenderness. RESPIRATORY CHEST: Respiratory exam included findings of, mild respiratory distress, Wheezing present, diffusely, Breath sounds diminished. CARDIOVASCULAR: Cardiovascular assessment normal, Cardiovascular exam included findings of heart rate regular rate and rhythm, Heart sounds normal. ABDOMEN FEMALE: Abdominal exam included findings of abdomen nontender, Bowel sounds normal, no distension, no mass, no pulsatile masses, no peritoneal signs, no rigidity, no guarding, no rebound, Rovsing's sign absent. BACK: Back exam normal, Back exam included findings of normal inspection, range of motion normal, no tenderness. UPPER EXTREMITY: Upper extremity exam normal, Upper extremity exam included findings of inspection normal, Range of motion normal, Motor strength normal, Sensation intact, Radial pulse normal. LOWER EXTREMITY: Lower extremity exam normal, Lower extremity exam included findings of inspection normal, Range of motion normal, Motor strength normal, Sensation intact, Posterior tibial pulse normal, Pedal pulse normal. NEURO: Neuro exam normal, Neuro exam findings include patient oriented to person, place and time, Speech normal, Gait normal, &a-1R&a+25V*p+0X*n5109W*c202B*c15G*c2P*p-0X&a-25V&a+1R Name: Massiel Garay : 1950 F66 MedRec: [id number] AcctNum: [id number] Prepared: FriOct 18, 2016 16:19 by Interface Page 8 of 10 pMD [facility] EMERGENCY RECORD Cranial nerves intact, no focal motor deficits, no focal sensory deficits. SKIN: Skin exam normal, Skin exam included findings of skin warm, dry, and normal in color, no rash. PSYCHIATRIC: Psychiatric exam normal, Normal affect. LAB INTERPRETATION (15:27 [facility]) INTERPRETATION: I reviewed the lab results, CBC normal, Chemistry normal, Cardiac enzymes normal. EVENTS TRANSFER: Triage to Emergency Emergency Room -02. (FriOct 18, 2016 13:37 BGAR) Removed from Emergency Emergency Room -02. (16:11 [facility]) RADIOLOGYINTERPRETATION (14:12 [facility]) CHEST: Chest films negative. EKG INTERPRETATION (15:27 [facility]) 12 LEAD EKG INTERPRETATION: Interpretation: normal EKG. DOCTOR NOTES (15:28 [facility]) RE-EVALUATION: Routine re-evaluation, after administration of bronchodilator nebulizer treatments, The patient's condition has improved. TEXT: Patient presented with findings consistent with COPD exacerbation. Workup has been reassuring except for PCO2 of 65. Patient ambulated with O2 on and desaturated to 91%, and became tachycardic. I believe patient would benefit from admission for observation overnight and continued care and management due to her advance disease and current condition. PATIENT PLAN: The patient will be admitted to the hospital, Initial physician orders were written for patient as discussed with admitting physician, The patient will be admitted to a medical floor. DATA REVIEWED: Lab data reviewed, Xray data reviewed, Reviewed EKG. PROBLEM LIST No recorded problems DIAGNOSIS (16:11 [facility]) FINAL: PRIMARY: COPD exacerbation. DISPOSITION PATIENT: Disposition Type: Admit, Disposition: [facility]. (16:11 [facility]) Patient left the department. (16:11 [facility]) PRESCRIPTION No recorded prescriptions &a-1R&a+25V*p+0X*v0760U*c202B*c15G*c2P*p-0X&a-25V&a+1R Name: Massiel Garay : 1950 F66 MedRec: [id number] AcctNum: [id number] Prepared: FriOct 18, 2016 16:19 by Interface Page 9 of 10 pMD [facility] EMERGENCY RECORD IMAGING *EKG: Image captured from scanner. (15:02 [facility]) ADMISSION ORDERS: Image captured from scanner. (15:10 [facility]) *SUPPLY CHARGE SHEET: Image captured from scanner. (16:10 [facility]) ADMIN DIGITAL SIGNATURE: MD Matos Jason. (15:29 [facility]) MD Matos Jason. (16:11 [facility]) [place]: AHOO=JAIME Ovalle, December BGAR=TACO Elkins, Magalys JJAC=MD Matos Jason &a-1R&a+25V*p+0X*d9104W*c202B*c15G*c2P*p-0X&a-25V&a+1R Name: Massiel Garay : 1950 F66 MedRec: [id number] AcctNum: [id number] Prepared: FriOct 18, 2016 16:19 by Interface Page 10 of 10 pMD [facility]TDD
[2016-10-18 16:30] VITALS: BMI 17.9
[2016-10-18] MEDS ORDERED: Diazepam 5 MG TAB PO PRN (18:14)
[2016-10-18] MEDS: Mometasone/Formoterol 60 PUFF AER INH SCH (20:19)
[2016-10-18] MEDS: Fluticasone Propionate Nasal Spray 16 gm Bottle NASAL SCH (20:24)
[2016-10-18] MEDS: Zolpidem Tartrate 5 MG TAB PO SCH (20:25)
--- NOTE | 2016-10-18 20:33 | RAD ---
PORTABLE CHEST 10/18/16 Comparison is made with the 03/2016 study. The heart is normal in size. The lungs are hyperexpanded as expected with her COPD. They are clear. No infiltrate or effusion was seen. There is no vascular congestion or edema. The trachea is midline . IMPRESSION: COPD with no acute finding. POS: HOME
[2016-10-18] MEDS ORDERED: Sodium Chloride 0.9% 10 ML ONE (21:01)
[2016-10-19 06:17] LABS: #Lymphocytes 0.5 thou/uL (1.20-3.40); #Monocytes 0.4 thou/uL (0.11-0.59); %Eosinophils 0.1 % (0.0-10.0); %Monocytes 10.7 % (0.0-10.0); Hematocrit 35.9 % (36.0-47.0); Mean Platelet Volume 7.1 fL (7.4-10.4); Red Blood Cell (RBC) Count 3.86 mill/uL (4.20-5.40)
[2016-10-19 06:40] LABS: Anion Gap 12 mmol/L (10-20); BUN (Urea Nitrogen) 7 mg/dL (9.8-20.1); Calc. Creatinine Clearance 73 mL/min (70-130); Calcium 9.7 mg/dL (7.8-10.44); Carbon Dioxide 29 mmol/L (23-31); Chloride 94 mmol/L (98-107); Estimated GFR-MDRD Greater than 90
[2016-10-19] MEDS: Mometasone/Formoterol 60 PUFF AER INH SCH ×2 (08:34→18:45)
[2016-10-19] MEDS: Montelukast Sodium 10 mg Tablet PO SCH (09:09)
[2016-10-19] MEDS: Lisinopril 10 MG TAB PO SCH (09:12)
[2016-10-19] MEDS: Fluticasone Propionate Nasal Spray 16 gm Bottle NASAL SCH ×2 (09:12→21:30)
[2016-10-19] MEDS: Enoxaparin Sodium 40 MG/0.4 ML SYRINGE SC SCH (17:40)
--- NOTE | 2016-10-19 17:45 | HP ---
DATE OF ADMISSION: 10/18/2016 PRIMARY CARE PHYSICIAN: Dr. Yoly Colin, Nurse Practitioner, [facility]. SR. DIRECTOR PRODUCT MANAGEMENT: Dr. Hope in [place]. CHIEF COMPLAINT: Shortness of breath and wheezing. HISTORY OF PRESENT ILLNESS: Ms. Garay is a 66-year-old female with history of hypertension , gastroesophageal reflux disease, and chronic COPD with 2 to 3 exacerbations per year requiring hos pitalization for increasing dyspnea and cough. She was recently admitted for a week in [place] for acute exacerbation of her COPD. She had quit smoking for about a year, but had uses 6-8 cigarettes prior to her admission in July. Yesterday, she presented to her PCP, Dr. Yoly Colin com plaining of worsening shortness of breath with wheezing for the past 4 days. She has been using her oxygen along with her albuterol nebulization q.4-6 hours, but with no improvement, she has been arabella y tired and cannot do her usual activities. She also has had low grade fever all throughout and a d eep cough. At the clinic, her O2 saturation ranged from 80%-90%. She was then sent to ED for furth er evaluation. She was dyspneic and with diffuse wheezing when she first came in. Her vital signs showed blood pressure of 160/74, pulse rate of 96, O2 sat was 80% at room air, respiratory rate was 22, temperature was 97.8. She was given O2 at 25% FIO2 which subsequently improved her saturation t o 100%. She was given Solu-Medrol per IV, and DuoNeb x1. Her workup included normal chest x-ray, w bonny count was within normal range. Her cardiac markers were normal. Her venous blood gas showed a pCO2 of 65, her oxygen dropped to 92% while on 2 liters while walking with shortness of breath and became tachycardic, hence this admission for COPD exacerbation with hypoxemia. She was started on e mpiric treatment with Levaquin, DuoNeb q.i.d. scheduled and p.r.n. and Solu-Medrol per IV. She was also placed on continuous oxygen. This morning, she verbalized with little improvement with her sunita athing, still has a dry cough, and little appetite. PAST MEDICAL HISTORY: 1. Chronic obstructive pulmonary disease with intermittent use of oxygen. 2. Hypertension. 3. Gastroesophageal reflux disease. 4. Chronic hyponatremia. 5. Bipolar disorder. PAST SURGICAL HISTORY: 1. . 2. Tonsillectomy. 3. Hysterectomy. 4. Back surgery x2. 5. Exploratory laparotomy. HOME MEDICATIONS: 1. Ambien 5 mg at bedtime. 2. Diazepam 2 mg daily p.r.n. for anxiety. 3. Albuterol HFA 1 puff q.6 hours p.r.n. 4. DuoNeb q.i.d. p.r.n. 5. Cymbalta 30 mg b.i.d. 6. Tudorza Pressair 400 mcg inhalational b.i.d. 7. Symbicort 2 puffs inhalation b.i.d. 8. Protonix 40 mg daily. 9. Singular 10 mg daily. 10. Lisinopril 10 mg daily. 11. Flonase 2 sprays b.i.d. FAMILY HISTORY: Both parents due to chronic obstructive pulmonary disease with complications. PERSONAL AND SOCIAL HISTORY: She lives with her son and his family. She is a social drinker, admit s to long history of cigarette smoking, recently smoked cigarettes back in July. REVIEW OF SYSTEMS: General: Positive for low grade fever, positive for fatigue. Positive for decr eased appetite. EYES: Positive for decreased vision. EAR, NOSE, THROAT: Negative for sore throat . Negative for ear pain. Respiratory: Positive for cough. Positive for shortness of breath. Pos itive for wheezing. Cardiovascular: Negative for chest pain. Negative for palpitation. Gastroint estinal: Negative for abdominal pain, no nausea, vomiting or diarrhea. Musculoskeletal: Negative for joint pains, joint stiffness or joint swelling. Integument: Negative for skin lesions, no pru ritus. Psychiatric: Positive for anxiety. Positive for mild depression. Hematology: Negative fo r swollen nodes. Negative for bruising. Negative for bleeding. PHYSICAL EXAMINATION: VITAL SIGNS: Blood pressure of 107/52, respiratory rate of 20, temperature of 98 Fahrenheit, pulse of 94, O2 saturation 98% at 3 liters. GENERAL: Patient is alert, oriented, slightly tachypneic, speaks in short sentences. HEENT: Normocephalic, atraumatic. Pupils equally reactive to light. No tonsillar pharyngeal conge stion. NECK: Supple, negative for thyromegaly, no lymphadenopathy. CHEST: Positive use of accessory muscle with supraclavicular retractions. LUNGS: Decreased breath sounds all throughout with faint expiratory wheezing. HEART: Slightly tachycardic, no murmur, rubs or gallops. ABDOMEN: Flat, soft, nontender, normoactive bowel sounds. EXTREMITIES: Symmetrical spontaneous movement. No edema. No clubbing. NEUROLOGIC: No focal deficits. PSYCHIATRIC: Appropriate affect and demeanor. LABORATORY DATA: WBC of 4, hemoglobin of 11.6, hematocrit of 35.9, neutrophils of 75, lymphocytes o f 12.9, monocytes of 10. BMP: Sodium of 131, potassium of 4.3, chloride of 94, creatinine of 0.54, GFR of 90, glucose of 122, calcium of 9.7. ASSESSMENT: 1. Acute on chronic exacerbation of COPD with hypoxemia. 2. Essential hypertension. 3. Gastroesophageal reflux disease. 4. Chronic hyponatremia. 5. Anemia. 6. Bipolar disorder. 7. Former smoker. 8. Weakness. PLAN: 1. We will change from observation status to inpatient. She is not stable to go home and not clini kurt improved, she is still dyspneic and has tight breath sounds. She will continue with oxygen to maintain saturation between 92%-94%. She would require IV Solu-Medrol, scheduled breathing treatme nts and p.r.n. for dyspnea and wheezing. 2. We will continue with present empiric treatment with IV Levaquin pending blood cultures. 3. Continue GI prophylaxis with Protonix due to IV steroid use. 4. Reconciled home medication. 5. DVT prophylaxis with Lovenox with SCDs.
[2016-10-19] MEDS: Diazepam 5 MG TAB PO PRN (23:17)
[2016-10-19] MEDS: Zolpidem Tartrate 5 MG TAB PO SCH (23:17)
[2016-10-20] MEDS: Mometasone/Formoterol 60 PUFF AER INH SCH ×2 (06:07→18:48)
[2016-10-20] MEDS: Fluticasone Propionate Nasal Spray 16 gm Bottle NASAL SCH ×2 (08:42→22:20)
[2016-10-20] MEDS: Lisinopril 10 MG TAB PO SCH (09:20)
[2016-10-20] MEDS: Montelukast Sodium 10 mg Tablet PO SCH (09:20)
--- NOTE | 2016-10-20 16:01 | PRG ---
DATE OF SERVICE: 10/20/2016 PRIMARY CARE PHYSICIAN: Yoly Colin, Nurse Practitioner, [facility]. DISHWASHER PREPARER: Dr. Prince in [place]. ATTENDING PHYSICIAN: Dr. Johnson. SUBJECTIVE: Still having shortness of breath, but feels better compared yesterday, she walked down the hallways without dropping her O2 saturation. She denies any fever. She denies chest pain. Her cough is better. She likes Dulera than her Symbicort. She feels she can go home soon. OBJECTIVE: VITAL SIGNS: Blood pressure of 107/52, pulse of 100, temperature of 97.7, O2 sat 100% at room air, respiratory rate of 18. GENERAL: Patient is alert, oriented, in mild respiratory distress. HEENT: Normocephalic, atraumatic. Pupils equally reactive to light. No tonsillopharyngeal congestion. NECK: Supple. Negative for thyromegaly. Negative for lymphadenopathy. CHEST AND LUNGS: Positive use of accessory muscles. Negative for retractions. Distant breath sounds with expiratory wheezes. HEART: Tachycardic, no murmur, rubs or gallops. ABDOMEN: Flat, soft, nontender. EXTREMITIES: Symmetrical. No edema. No clubbing. NEUROLOGIC: No focal deficits. PSYCHIATRIC: Appropriate affect and demeanor. LABORATORY: Blood culture x2 negative. ASSESSMENT: 1. Acute on chronic exacerbation of chronic obstructive pulmonary disease with hypoxemia, improving. 2. Essential hypertension, stable. 3. Gastroesophageal reflux disease. 4. Chronic hyponatremia, symptomatic. 5. Bipolar disorder. 6. Former smoker. 7. Weakness. PLAN: 1. She has improved since admission, still requiring O2 support, we will continue IV Levaquin, decrease her breathing treatments from scheduled to p.r.n. for dyspnea and wheezing. 2. Taper IV steroids. 3. Continue GI prophylaxis with Protonix due to her IV steroid use. 4. Continue deep vein thrombosis prophylaxis with SCDs. 5. We will start discharge planning, hopefully home tomorrow and close follow up with her PCP, Yoly Colin, nurse practitioner at [facility]. [facility]
[2016-10-20] MEDS: Enoxaparin Sodium 40 MG/0.4 ML SYRINGE SC SCH (18:34)
[2016-10-20] MEDS: Milk Of Magnesia 30 ML UDCUP PO PRN (18:47)
[2016-10-20] MEDS: predniSONE 20 MG TAB PO SCH (22:20)
[2016-10-20] MEDS: Zolpidem Tartrate 5 MG TAB PO SCH (22:20)
[2016-10-20] MEDS: Diazepam 5 MG TAB PO PRN (22:23)
[2016-10-20] MEDS: Doxycycline Hyclate 100 MG TAB PO SCH (22:23)
[2016-10-21] MEDS: Mometasone/Formoterol 60 PUFF AER INH SCH ×2 (06:09→18:39)
[2016-10-21] MEDS: Fluticasone Propionate Nasal Spray 16 gm Bottle NASAL SCH ×2 (09:22→21:47)
[2016-10-21] MEDS: Milk Of Magnesia 30 ML UDCUP PO PRN (09:22)
[2016-10-21] MEDS: guaiFENesin ER 600 MG TAB PO SCH ×2 (09:22→21:44)
[2016-10-21] MEDS: Doxycycline Hyclate 100 MG TAB PO SCH ×2 (09:23→21:45)
[2016-10-21] MEDS: Montelukast Sodium 10 mg Tablet PO SCH (09:23)
[2016-10-21] MEDS: Lisinopril 10 MG TAB PO SCH (09:24)
[2016-10-21] MEDS: predniSONE 20 MG TAB PO SCH ×2 (09:24→21:47)
[2016-10-21] MEDS: Enoxaparin Sodium 40 MG/0.4 ML SYRINGE SC SCH (18:39)
[2016-10-21] MEDS: Diazepam 5 MG TAB PO PRN (21:47)
[2016-10-21] MEDS: Zolpidem Tartrate 5 MG TAB PO SCH (21:47)
[2016-10-22] MEDS: Mometasone/Formoterol 60 PUFF AER INH SCH (06:05)
[2016-10-22] MEDS: Fluticasone Propionate Nasal Spray 16 gm Bottle NASAL SCH (09:13)
[2016-10-22] MEDS: guaiFENesin ER 600 MG TAB PO SCH (09:14)
[2016-10-22] MEDS: predniSONE 20 MG TAB PO SCH (09:14)
[2016-10-22] MEDS: Montelukast Sodium 10 mg Tablet PO SCH (09:14)
[2016-10-22] MEDS: Doxycycline Hyclate 100 MG TAB PO SCH (09:15)
[2016-10-22] MEDS: Lisinopril 10 MG TAB PO SCH (09:15)
[2016-10-22] MEDS: Enoxaparin Sodium 40 MG/0.4 ML SYRINGE SC SCH (17:54)
[2016-10-22 18:23] VITALS: BP 118/56; TEMP 98.6
[2016-10-22] MEDS ORDERED: Budesonide 0.5 MG/2 ML NEB INH SCH (19:00)
[2016-10-22] MEDS ORDERED: Arformoterol 15 MCG/2 ML NEB NEB SCH (19:00)
--- NOTE | 2016-10-23 04:46 | DIS ---
DATE OF ADMISSION: 10/18/2016 DATE OF TRANSFER: 10/22/2016 ADMISSION DIAGNOSES: 1. [id number] respiratory failure with hypoxia and hypercapnia. 2. Acute exacerbation of chronic obstructive pulmonary disease. 3. Anxiety and depression. 4. Gastroesophageal reflux disease. 5. Hypertension. 6. Chronic hyponatremia. 7. Tobacco abuse. DISCHARGE DIAGNOSES: 1. Balbj-iy-yfohsge respiratory failure with hypoxia and hypercapnia. 2. Acute exacerbation of chronic obstructive pulmonary disease. 3. Anxiety and depression. 4. Gastroesophageal reflux disease. 5. Hypertension. 6. Chronic hyponatremia. 7. Tobacco abuse. PRIMARY CARE PHYSICIAN: Yoly Colin PA-C ADMITTING PHYSICIAN: Kaylah Johnson MD COVERING PHYSICIAN: Fara Michael DO, for her primary care provider, Yoly Colin PA-C from 10/21/2016, through the date of transfer. PROCEDURES: 1. CBC from the date of admission with white count 9.4, hemoglobin 13.0, hematocrit 41.2, platelets 343 with 75% neutrophils, 11.5% lymphocytes. 2. Venous blood gas from the date of admission with a pH of 7.37. 3. PCO2 of 65. 4. PO2 of 32. 5. HCO3 of 36. 6. Sodium on the date of admission 134, chloride 90, bicarbonate 34, BUN 8, creatinine 0.56, normal LFTs, normal cardiac enzymes. Repeat chemistry profile on 10/19/2016, with sodium 131, chloride 94, bicarbonate 29, BUN 7, creatinine 0.54, glucose 122, calcium 9.7. 7. Blood culture x2 with no growth at 48 hours. 8. Chest x-ray from the date of admission showed COPD with no acute findings. HISTORY AND PHYSICAL EXAMINATION: Please see dictated report from Dr. Johnson on the day of admission. HOSPITAL COURSE: Ms. Garay is a 66-year-old female, tobacco dependent , who presented to the emergency room from her clinic setting for worsening shortness of breath, cough, and wheezing. The patient went to her primary care provider that day, Ms. Colin, who recommended that the patient undergo further evaluation for probable admission due to suspected COPD exacerbation. In the emergency room, the patient was noted to be hypoxic and tachypneic. The hypoxia corrected with O2. She was administered IV antibiotics and steroids, which were continued up through 10/20/2016, at which point the patient's IV infiltrated. She had quick improvement of her symptoms with decreased dyspnea, wheezing, and increased stamina. She was transitioned from Symbicort in the outpatient setting to Dulera, which was on formulary here and felt that this was more effective for her. However, on the day prior to her discharge, she was still continuing to feel somewhat dyspneic with diminished air entry throughout and a prolonged expiratory phase and I transitioned her over to Brovana via neb b.i.d. and Pulmicort b.i.d. This will likely be continued in the outpatient setting if she does well on this during her swing bed stay. She was also given DuoNeb every 6 hours. Her IV antibiotics were transitioned to doxycycline 100 mg p.o. b.i.d. Her Solu-Medrol was changed to prednisone 40 mg b.i.d. and this will be tapered over a 2-week period. Due to dyspnea on exertion and continued hypoxia with ambulation, the patient was qualified for outpatient portable oxygen prior to her discharge. We will order a nebulizer machine for the patient at home. We would like to have physical therapy evaluate the patient for strengthening and increasing her stamina and pulmonary toilet while she is in our swing bed stay for a few more days until at which point hopefully she will be stable to go home. At that point, we will order outpatient pulmonary function testing and enroll the patient in pulmonary rehabilitation. She is motivated for therapy. Tobacco cessation/avoidance counseled during visit. DISPOSITION: Transfer to swing bed unit. CONDITION: Stable. MEDICATIONS: 1. Brovana 15 mcg nebulized b.i.d. 2. Budesonide 0.5 mg inhaled b.i.d. 3. Duloxetine 30 mg p.o. b.i.d. 4. Valium 2.5 mg p.o. every 24 hours p.r.n. 5. Doxycycline 100 mg p.o. b.i.d. 6. Fluticasone 2 sprays per nostril b.i.d. 7. DuoNeb 3 mL on nebulized every 6 hours. 8. Zestril 10 mg p.o. daily. 9. Magnesium hydroxide 30 mL p.o. daily p.r.n. 10. Singulair 10 mg p.o. daily. 11. Pantoprazole 40 mg p.o. daily. 12. Ambien 5 mg p.o. at bedtime. 13. Guaifenesin 1200 mg p.o. every 12 hours, extended release. 14. Prednisone 40 mg p.o. b.i.d. to be tapered over 2-week period. FOLLOWUP: Followup will be with her primary care provider, Yoly Colin PA-C, in approximately 10 to 14 days following her swing bed discharge. ISABELA
== END 2016-10-22 18:59 | disposition swing bed (61) | DRG 190 ==
LOC: BURERS 13:34 → UNDOADMOB 15:52 → BURMED 15:52 → INTOOBSV 15:52 → OBSVTOIN 15:52 → BURMED 10-19 09:57 → UNDODISOB 10-22 18:59
PROVIDERS: ADMIT Family Medicine; ATTEND Family Medicine
DX: J44.1 Chronic obstructive pulmonary disease with (acute) exacerbation (principal); J96.21 Acute and chronic respiratory failure with hypoxia; J96.22 Acute and chronic respiratory failure with hypercapnia; E87.1 Hypo-osmolality and hyponatremia; I10 Essential (primary) hypertension; F17.210 Nicotine dependence, cigarettes, uncomplicated; K21.9 Gastro-esophageal reflux disease without esophagitis; D64.9 Anemia, unspecified; F31.9 Bipolar disorder, unspecified; F41.9 Anxiety disorder, unspecified; E78.5 Hyperlipidemia, unspecified
CPT/HCPCS: 36415; 71010; 80048; 80053; 82553; 82805; 84484; 85025; 87040; 93005; 94664; 96374; A4216; J1650; J1956; J2920; J2930; J7506; J7620; J7626

== ENCOUNTER 2016-10-22 20:28 | Inpatient (IN) | payer MEDICARE ==
[2016-10-22] MEDS ORDERED: Zolpidem Tartrate 5 MG TAB ONE (21:36)
[2016-10-22] MEDS ORDERED: predniSONE 20 MG TAB ONE (21:36)
[2016-10-22] MEDS ORDERED: Diazepam 5 MG TAB ONE (21:36)
[2016-10-22] MEDS ORDERED: Doxycycline Hyclate 100 MG TAB ONE (21:36)
[2016-10-22] MEDS: Fluticasone Propionate Nasal Spray 16 gm Bottle NASAL SCH (21:50)
[2016-10-22] MEDS: Diazepam 5 MG TAB PO PRN (21:50)
[2016-10-22] MEDS: predniSONE 20 MG TAB PO SCH (21:50)
[2016-10-22] MEDS: Doxycycline Hyclate 100 MG TAB PO SCH (21:50)
[2016-10-22] MEDS: Zolpidem Tartrate 5 MG TAB PO SCH (21:50)
[2016-10-22 22:00] VITALS: BMI 18.0
[2016-10-22] MEDS ORDERED: Milk Of Magnesia 30 ML UDCUP PO PRN (22:13)
[2016-10-22] MEDS ORDERED: guaiFENesin ER 600 MG TAB PO SCH (22:15)
[2016-10-23] MEDS: Arformoterol 15 MCG/2 ML NEB NEB SCH ×2 (06:07→19:42)
[2016-10-23] MEDS: Budesonide 0.5 MG/2 ML NEB INH SCH ×2 (06:08→19:32)
[2016-10-23] MEDS: Fluticasone Propionate Nasal Spray 16 gm Bottle NASAL SCH ×2 (09:03→21:02)
[2016-10-23] MEDS: guaiFENesin ER 600 MG TAB PO SCH ×2 (09:04→20:59)
[2016-10-23] MEDS: Lisinopril 10 MG TAB PO SCH (09:05)
[2016-10-23] MEDS: Montelukast Sodium 10 mg Tablet PO SCH (09:05)
[2016-10-23] MEDS: predniSONE 20 MG TAB PO SCH ×2 (09:06→21:00)
[2016-10-23] MEDS: Doxycycline Hyclate 100 MG TAB PO SCH ×2 (09:07→21:04)
[2016-10-23] MEDS: Zolpidem Tartrate 5 MG TAB PO SCH (21:01)
[2016-10-23] MEDS: Diazepam 5 MG TAB PO PRN (21:12)
[2016-10-24] MEDS: Arformoterol 15 MCG/2 ML NEB NEB SCH ×2 (05:48→18:53)
[2016-10-24] MEDS: Budesonide 0.5 MG/2 ML NEB INH SCH ×2 (05:51→18:50)
[2016-10-24] MEDS ORDERED: predniSONE 20 MG TAB ONE ×2 (08:20→08:21)
[2016-10-24] MEDS: Fluticasone Propionate Nasal Spray 16 gm Bottle NASAL SCH ×2 (08:37→21:22)
[2016-10-24] MEDS: predniSONE 20 MG TAB PO SCH ×2 (08:37→21:21)
[2016-10-24] MEDS: Lisinopril 10 MG TAB PO SCH (08:38)
[2016-10-24] MEDS: guaiFENesin ER 600 MG TAB PO SCH ×2 (08:38→21:20)
[2016-10-24] MEDS: Montelukast Sodium 10 mg Tablet PO SCH (08:38)
[2016-10-24] MEDS: Doxycycline Hyclate 100 MG TAB PO SCH ×2 (08:39→21:20)
[2016-10-24] MEDS: Diazepam 5 MG TAB PO PRN (15:24)
[2016-10-24] MEDS: Zolpidem Tartrate 5 MG TAB PO SCH (21:21)
[2016-10-25] MEDS: Arformoterol 15 MCG/2 ML NEB NEB SCH ×2 (06:22→18:43)
[2016-10-25] MEDS: Budesonide 0.5 MG/2 ML NEB INH SCH ×2 (06:29→18:53)
[2016-10-25] MEDS: guaiFENesin ER 600 MG TAB PO SCH ×2 (08:32→21:13)
[2016-10-25] MEDS: Lisinopril 10 MG TAB PO SCH (08:33)
[2016-10-25] MEDS: Fluticasone Propionate Nasal Spray 16 gm Bottle NASAL SCH ×2 (08:33→21:14)
[2016-10-25] MEDS: Montelukast Sodium 10 mg Tablet PO SCH (08:33)
[2016-10-25] MEDS: predniSONE 20 MG TAB PO SCH ×2 (08:33→21:12)
[2016-10-25] MEDS: Doxycycline Hyclate 100 MG TAB PO SCH ×2 (08:34→21:14)
[2016-10-25] MEDS: Diazepam 5 MG TAB PO PRN (10:47)
[2016-10-25] MEDS: Zolpidem Tartrate 5 MG TAB PO SCH (21:13)
[2016-10-26] MEDS: Budesonide 0.5 MG/2 ML NEB INH SCH (05:49)
[2016-10-26] MEDS: Arformoterol 15 MCG/2 ML NEB NEB SCH (05:50)
[2016-10-26 06:07] VITALS: BP 115/59; TEMP 98.4
[2016-10-26] MEDS: predniSONE 20 MG TAB PO SCH (08:25)
[2016-10-26] MEDS: Lisinopril 10 MG TAB PO SCH (08:25)
[2016-10-26] MEDS: Montelukast Sodium 10 mg Tablet PO SCH (08:26)
[2016-10-26] MEDS: guaiFENesin ER 600 MG TAB PO SCH (08:26)
[2016-10-26] MEDS: Doxycycline Hyclate 100 MG TAB PO SCH (08:30)
[2016-10-26] MEDS: Diazepam 5 MG TAB PO PRN (08:33)
[2016-10-26] MEDS: Fluticasone Propionate Nasal Spray 16 gm Bottle NASAL SCH (08:34)
== END 2016-10-26 14:20 | disposition home or self-care (01) | DRG 191 ==
LOC: BURMED 20:28
PROVIDERS: ADMIT Family Medicine; ATTEND Family Medicine
DX: J44.1 Chronic obstructive pulmonary disease with (acute) exacerbation (principal); E87.1 Hypo-osmolality and hyponatremia; I10 Essential (primary) hypertension; K21.9 Gastro-esophageal reflux disease without esophagitis; F31.9 Bipolar disorder, unspecified; Z87.891 Personal history of nicotine dependence; D64.9 Anemia, unspecified; R53.1 Weakness; Z66 Do not resuscitate
CPT/HCPCS: 94640; G8978-GP-CI; G8979-GP-CI; J7506; J7620; J7626

== ENCOUNTER 2016-11-25 16:15 | Emergency (ER) | payer MEDICARE ==
[2016-11-25] MEDS ORDERED: Ipratropium Bromide 2.5 ml Neb ONE (16:34)
[2016-11-25 16:40] LABS: #Basophils 0.1 thou/uL (0.0-0.2); #Eosinphils 0.1 thou/uL (0.0-0.7); #Lymphocytes 1.1 thou/uL (1.20-3.40); #Monocytes 1.2 thou/uL (0.11-0.59); #Neutrophils 7.3 thou/uL (1.40-6.50); %Basophils 1.4 % (0.0-1.0); %Eosinophils 0.9 % (0.0-10.0); %Monocytes 11.8 % (0.0-10.0); Hematocrit 37.2 % (36.0-47.0); Mean Platelet Volume 6.8 fL (7.4-10.4); Red Blood Cell (RBC) Count 4.05 mill/uL (4.20-5.40); White Blood Cell (WBC) Count 9.8 thou/uL (4.8-10.8)
[2016-11-25 16:52] LABS: ALT (SGPT) 13 U/L (0-55); AST (SGOT) 18 U/L (5-34); Alkaline Phosphatase 83 U/L (40-150); Anion Gap 12 mmol/L (10-20); BUN (Urea Nitrogen) 9 mg/dL (9.8-20.1); Bilirubin, Total 0.3 mg/dL (0.2-1.2); CK (CPK) 81 U/L (29-168); Calc. Creatinine Clearance 0 mL/min (70-130); Carbon Dioxide 33 mmol/L (23-31); Chloride 89 mmol/L (98-107); Estimated GFR-MDRD Greater than 90; Globulin 2.8 g/dL (2.4-3.5); Protein, Total 6.6 g/dL (5.8-8.1)
[2016-11-25 16:59] LABS: Troponin I Less than 0.010 ng/mL (< 0.028)
[2016-11-25] MEDS ORDERED: Magnesium Sulfate 2 GM/100 ML BAG ONE (18:01)
--- NOTE | 2016-11-25 20:24 | RAD ---
PORTABLE CHEST: Date: 11-25-16 FINDINGS: An AP portable film at 1629 is compared with a 10-18-16 study. The heart is normal in size and has not changed. There is no vascular congestion, edema, or pleural effusion. No focal infiltrates are appreciated. The trachea is midline. IMPRESSION: No acute thoracic finding. POS: HOME
== END 2016-11-25 19:00 | disposition short-term general hospital (02) ==
LOC: BURERS 16:15
DX: J44.1 Chronic obstructive pulmonary disease with (acute) exacerbation (principal); K21.9 Gastro-esophageal reflux disease without esophagitis; I10 Essential (primary) hypertension; F41.9 Anxiety disorder, unspecified; F31.9 Bipolar disorder, unspecified; Z87.891 Personal history of nicotine dependence
CPT/HCPCS: 36415; 71010; 80053; 82550; 82553; 83880; 84484; 85025; 93005; 94644; 94760; 96365; J3475; J7644

== ENCOUNTER 2016-12-08 15:06 | Emergency (ER) | payer MEDICARE ==
[2016-12-08] MEDS ORDERED: Magnesium Sulfate 2 GM/100 ML BAG ONE (15:36)
[2016-12-08] MEDS ORDERED: Albuterol Sulfate 1.25 MG/3 ML NEB ONE (15:36)
[2016-12-08 15:55] LABS: #Basophils 0.1 thou/uL (0.0-0.2); #Monocytes 0.8 thou/uL (0.11-0.59); #Neutrophils 10.7 thou/uL (1.40-6.50); %Eosinophils 0.1 % (0.0-10.0); %Lymphocytes 7.6 % (21.0-51.0); %Monocytes 6.1 % (0.0-10.0); %Neutrophils 85.2 % (42.0-75.0); Hemoglobin 11.5 g/dL (12.0-16.0); Mean Corpuscular HGB CONC 34.1 g/dL (32.0-36.0); Mean Corpuscular Hemoglobin 30.9 pg (27.0-31.0); Mean Corpuscular Volume 90.5 fl (81.0-99.0); Platelet Count 379 thou/uL (130-400); RBC Distribution Width 13.6 % (11.5-14.5); Red Blood Cell (RBC) Count 3.71 mill/uL (4.20-5.40); White Blood Cell (WBC) Count 12.6 thou/uL (4.8-10.8)
[2016-12-08 16:04] LABS: Anion Gap 12 mmol/L (10-20); BUN (Urea Nitrogen) 9 mg/dL (9.8-20.1); Calc. Creatinine Clearance 0 mL/min (70-130); Calcium 8.8 mg/dL (7.8-10.44); Carbon Dioxide 31 mmol/L (23-31); Chloride 88 mmol/L (98-107); Estimated GFR-MDRD Greater than 90; Glucose 117 mg/dL (80-115); Potassium 3.8 mmol/L (3.5-5.1); Sodium 127 mmol/L (136-145)
[2016-12-08] MEDS ORDERED: methylPREDNISolone Sod Succ/PF 125 MG/2 ML VIAL ONE (17:08)
== END 2016-12-08 17:21 | disposition short-term general hospital (02) ==
LOC: BURERS 15:06
DX: J44.1 Chronic obstructive pulmonary disease with (acute) exacerbation (principal); E87.1 Hypo-osmolality and hyponatremia; K21.9 Gastro-esophageal reflux disease without esophagitis; I10 Essential (primary) hypertension; E78.5 Hyperlipidemia, unspecified; F41.9 Anxiety disorder, unspecified; F31.9 Bipolar disorder, unspecified; Z87.891 Personal history of nicotine dependence
CPT/HCPCS: 36415; 80048; 83880; 85025; 94640; 94760; 96365; 96375; J2930; J3475; J7620

== ENCOUNTER 2016-12-16 13:43 | Emergency (ER) | payer MEDICARE ==
[2016-12-16] MEDS ORDERED: predniSONE 20 MG TAB ONE (14:15)
--- NOTE | 2016-12-16 22:24 | RAD ---
PORTABLE CHEST: Date: 12-16-16 An AP portable film at 1412 is compared with the prior study of 12-08-16, as well as other films dati ng back to the 2015 time range. FINDINGS: The heart is normal in size. The lungs are clear. No infiltrate, effusion, or pneumothorax was seen. There is no vascular congestion or edema. The left hilum is a little more prominent than the right, but looking back at old films it is not substantially different over time. IMPRESSION: No acute thoracic finding. POS: HOME
== END 2016-12-16 16:18 | disposition home or self-care (01) ==
LOC: BURERS 13:43
DX: J44.9 Chronic obstructive pulmonary disease, unspecified (principal); K21.9 Gastro-esophageal reflux disease without esophagitis; I10 Essential (primary) hypertension; E78.5 Hyperlipidemia, unspecified; F41.9 Anxiety disorder, unspecified; F31.9 Bipolar disorder, unspecified; Z87.891 Personal history of nicotine dependence
CPT/HCPCS: 71010; 99285; J7506

== ENCOUNTER 2016-12-22 19:37 | Emergency (ER) | payer MEDICARE ==
[2016-12-22] MEDS ORDERED: Bacitracin Zinc 1 Packet ONE (20:15)
[2016-12-22] MEDS ORDERED: Montelukast Sodium 10 mg Tablet PO SCH (21:00)
--- NOTE | 2016-12-22 22:47 | RAD ---
AP PORTABLE CHEST 12/22/20162010 HOURS COMPARISON: 12/16/2016 FINDINGS: The heart is normal in size. The lungs are clear, though slightly hyperexpanded. No infiltrate, ef fusion, or edema is seen. IMPRESSION: No acute thoracic finding. POS: HOME
== END 2016-12-22 21:20 | disposition home or self-care (01) ==
LOC: BURERS 19:37
DX: J44.9 Chronic obstructive pulmonary disease, unspecified (principal); K21.9 Gastro-esophageal reflux disease without esophagitis; I10 Essential (primary) hypertension; E78.5 Hyperlipidemia, unspecified; F31.9 Bipolar disorder, unspecified; F41.9 Anxiety disorder, unspecified; Z87.891 Personal history of nicotine dependence
CPT/HCPCS: 71010; 94760; J7620